=== PATIENT | male | born 1945 | race Caucasian/White ===

== ENCOUNTER 2021-04-25 07:59 | Outpatient (RCR) | payer MEDICARE, OTHER, SELFPAY | END 2021-06-01 10:44 | disposition home or self-care (01) | LOC: HO.WCC 07:59 | PROVIDERS: PCP Family Medicine; Visit Provider Physician Assistant | DX: R73.03 Prediabetes (principal); L97.819 Non-pressure chronic ulcer of other part of right lower leg with unspecified severity; I87.311 Chronic venous hypertension (idiopathic) with ulcer of right lower extremity; I10 Essential (primary) hypertension; I73.9 Peripheral vascular disease, unspecified; L30.9 Dermatitis, unspecified; Z87.891 Personal history of nicotine dependence | CPT/HCPCS: 11042; 97597; 99204; 99212 ==

== ENCOUNTER 2025-03-22 15:35 | Outpatient (REF) | payer MEDICARE, OTHER, SELFPAY ==
--- NOTE | ~2025-03-22 | XR_ITS ---
EXAMINATION: XR FOOT, LEFT CLINICAL INFORMATION: ULCER WITH VISABLE BONE COMPARISON: None available. TECHNIQUE: AP, lateral, and oblique views of the left foot. FINDINGS: The DIP joint of the second toe and IP joint of the great toe are flexed. Evaluation of the distal phalanx of the first and second digits are limited because of this projection. The cortex of the distal phalanx third toe is somewhat indistinct. The cortex of the distal phalanx of the second digit is not well-demonstrated. The cortex of the head of the middle phalanx is slightly irregular. There are no other bony abnormalities. Vascular thousand lesions are present in the foot. XR/XR foot LT 2V IMPRESSION: The distal phalanx of the first and second are not well demonstrated due to flexion during imaging. The cortex of the distal phalanx of the great toe is indistinct. If there is ulceration in this region, osteomyelitis in the differential. The distal phalanx of the second digit is poorly demonstrated due to projection, osteomyelitis is not ruled in or ruled out. The cortex of the head of the middle phalanx second digit is indistinct, osteomyelitis is in the differential. Electronically signed by: Shane Myles MD 03/22/2025 05:03 PM EDT
--- OUTSIDE RECORDS SUMMARY | 2025-03-22 17:28 | XMS_ITS | Continuity of Care Document ---
Author Organization [facility] Address [address] 2[address] [place] [address]- Care Team Providers Care Global Compensation Director Name Role Phone Martina Reyes MD Primary Care Physician Encounter [facility] [place] Date(s): 03/10/25 - 03/17/25 [facility] [place] [address] [place] [address]- Attending Physician: Mathew Sims MD Admitting Physician: Mathew Sims MD Referring Physician: Martina Reyes MD Encounter Type: Office Visit Allergies, Adverse Reactions, Alerts Substance Criticality Severity Reaction Reaction Severity Status cephalexin bad generalized rash Active Immunizations Given and Recorded Vaccine Date Status Refusal Reason influenza virus vaccine, inactivated 07/11/22 Chris rded influenza virus vaccine, inactivated 06/30/21 Chris rded influenza virus vaccine, inactivated 07/07/20 Chris rded influenza virus vaccine, inactivated 08/27/19 Chris rded influenza virus vaccine, inactivated 07/09/18 Chris rded influenza virus vaccine, inactivated 08/16/17 Chris rded [id number] bivalent booster vax 07/04/22 Recorded SARS-CoV-2 (COVID-19) mRNA-1273 vaccine 01/12/22 R ecorded SARS-CoV-2 (COVID-19) mRNA-1273 vaccine 09/06/21 R ecorded SARS-CoV-2 (COVID-19) mRNA BNT-162b2 vac 07/10/21 Recorded SARS-CoV-2 (COVID-19) mRNA BNT-162b2 vac 12/20/20 Recorded SARS-CoV-2 (COVID-19) mRNA BNT-162b2 vac 12/07/20 Recorded SARS-CoV-2 (COVID-19) mRNA BNT-162b2 vac 11/16/20 Recorded zoster vaccine, inactivated 09/05/18 Recorded zoster vaccine, inactivated 03/18/18 Recorded pneumococcal 23-valent vaccine 08/26/18 Recorded Medications [facility], See Instructions, # 5 each, Refills 5, Tot. Refills 5, Maintenance, Use left great toe wound as directed, 08/22/23 3:01:00 PM EST, Supply Start Date: 08/22/23 Status: Ordered Quantity: 5.0 Unit: each Repeat number: 6 atorvastatin 10 mg oral tablet 1 tablet = 10 mg, By Mouth, Daily, # 30 tablet, 0 Refills, Maintenance, 10/24/22 6:44:00 PM EST, Partial fill upon patient request if the prescription is for a schedule II opioid drug. Start Date: 10/24/22 Status: Ordered Quantity: 30.0 Unit: tablet Repeat number: 1 betamethasone topical dipropionate 0.05% cream 1 application, Topically, Daily, apply left lateral ankle 1-2 times daily, # 15 Gm, 0 Refills, Maintenance, 11/25/23 12:22:00 PM EST, Cream, [facility]/pharmacy #[id number], Partial fill upon patient request if the prescription is for a schedule II opioid drug., 1 application Topically Daily,Instr:apply left lateral ankle 1-2 times daily, 188, cm, 11/25/23 10:29:00 EST, Height, 95.5, kg, 04/16/23 9:22:00 EDT, Dry Weight Start Date: 11/25/23 Status: Ordered Quantity: 15.0 Unit: g Repeat number: 1 DilTIAZem (Eqv-Tiazac) 240 mg/24 hours oral capsule, extended release 1 capsule = 240 mg, By Mouth, Daily, 0 Refills, Maintenance, 03/25/23 11:25:00 AM EDT, Partial fill upon patient request if the prescription is for a schedule II opioid drug. Start Date: 03/25/23 Status: Ordered Repeat number: 1 Eliquis 5 mg oral tablet 1 tablet = 5 mg, By Mouth, 2 times a day, # 60 tablet, 5 Refills, Maintenance, 03/25/23 11:25:00 AM EDT, Tablet, Partial fill upon patient request if the prescription is for a schedule II opioid drug. Start Date: 03/25/23 Status: Ordered Quantity: 60.0 Unit: tablet Repeat number: 1 heel off loading shoe heel off loading shoe, See Instructions, # 2 each, Refills 0, Tot. 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 Refills 0, Maintenance, heel offloading shoe, 05/09/23 11:54:00 AM EDT, Supply Start Date: 05/09/23 Status: Ordered Quantity: 2.0 Unit: each Repeat number: 1 left heel offload shoe left heel offload shoe, See Instructions, # 1 each, Refills 0, Tot. Refills 0, Maintenance, Please fit and measure for a heel offloading shoe DX left heel ulcer, 06/13/23 2:52:00 PM EDT, Supply Start Date: 06/13/23 Status: Ordered Quantity: 1.0 Unit: each Repeat number: 1 Multivitamin Daily, 0 Refills, Maintenance, 04/16/23 9:19:00 AM EDT, Partial fill upon patient request if the prescription is for a schedule II opioid drug. Start Date: 04/16/23 Status: Ordered Repeat number: 1 nortriptyline 50 mg oral capsule 50 mg, 1, capsule, By Mouth, Daily at bedtime, Refills 0, Maintenance, 10/24/22 6:45:00 PM EST, Partial fill upon patient request if the prescription is for a schedule II opioid drug. Start Date: 10/24/22 Status: Ordered Repeat number: 1 Please fit patient for shoe insert to accommodate a prior left heel ulcer Please fit patient for shoe insert to accommodate a prior left heel ulcer, See Instructions, # 1 each, Refills 0, Tot. Refills 0, Maintenance, Please fit patient for a left foot shoe insert to accommodate a prior left heel ulcer in order to keep pressure OFF the heel area, 11/25/23 10:57:00 AM EST, Supply Start Date: 11/25/23 Status: Ordered Quantity: 1.0 Unit: each Repeat number: 1 SN SERVICE FOR LEFT HEEL WOUND 1X/WEEK SN SERVICE FOR LEFT HEEL WOUND 1X/WEEK, See Instructions, # 1 each, Refills 0, Tot. Refills 0, Maintenance, Aquacel AG dressings and Mepilex, 12/16/23 2:22:00 PM EDT, Supply, 188, cm, 12/16/23 13:16:00 EDT, Height, 95.5, kg, 04/16/23 9:22:00 EDT, Dry Weight Start Date: 12/16/23 Status: Ordered Quantity: 1.0 Unit: each Repeat number: 1 Vitamin D3 50 mcg (2000 intl units) oral tablet, chewable 1 tablet = 50 mcg, By Mouth, Daily, 0 Refills, Maintenance, 03/25/23 11:26:00 AM EDT, Partial fill upon patient request if the prescription is for a schedule II opioid drug. Start Date: 03/25/23 Status: Ordered Repeat number: 1 Problem List Condition Confirmation Course Effective Dates Status Health St atus Informant Diabetes mellitus Confirmed Active Wound of left heel Confirmed Active HTN (hypertension) Confirmed Active Obese class I Confirmed Active Pulmonary embolism Confirmed Active Renal mass Confirmed Active Social History Social History Type Response Tobacco Other: quit 52 years ago, smoked for 5-6 years, about 1 ppd. Sex Sex Representation Male (finding) Note * Flor Escudero: PERFORM Event Display: Patient Education/Instruction Authored Date: [id number] Ambulatory Adult Visit Summary [facility] [address] [address] Name: LALI ANDRADE : 1945?? Visit: 03/10/2025 11:00?? Ambulatory Visit Instructions ?? Your Care Team Primary Care Provider Martina Reyes MD? This Visit Provider Mathew Sims MD Vitals Signs Pulse Rate:??95 bpm??High Height: 188 cm Systolic Blood Pressure:??173 mm Hg??High Weight: 112.1 kg Diastolic Blood Pressure: 77 mm Hg Body Mass Index:??31.72 kg/m2??Critical Oxygen Saturation: 100 % Body surface area: 2.42 What to do next Scheduled Follow-Up Appointments Saturday 10:20 AM EDT ?? With: Wale Medrano MD Where: [facility] [address] [place] [id number]- Status: Pending Follow-Up Appointments Follow up Appointment - Ordered?-- F/U 6 months with KAUSHIK, 03/10/25 11:19:00 EDT Medications The list below reflects the information in our records and provided by you today along with any changes made during this visit. Please continue your medications until treatment is completed or stopped by your provider. If this is different from the information you have or there are other questions,please contact the prescribing provider. What How Much When Why Instructions Unchanged apixaban (Eliquis 5 mg oral tablet) 1 tab(s) Oral Twice a day Unchanged Atorvastatin (atorvastatin 10 mg oral tablet) 1 tab(s) Oral Daily Unchanged Betamethasone Topical (betamethasone topical dipropionate 0.05% cream) 1 nuha Topically Daily apply left lateral ankle 1-2 times daily ?? Unchanged Cholecalciferol (Vitamin D3 50 mcg (2000 intl units) oral tablet, chewable) 1 tab(s) Oral Daily Unchanged Diltiazem (DilTIAZem (Eqv-Tiazac) 240 mg/ 24 hours oral capsule, extended release) 1 capsule Oral Daily Unchanged Durable Medical Equipment (heel off loading shoe) See instructions Heel ulcer heel off loading shoe ?? Unchanged Durable Medical Equipment (heel off loading show) See instructions heel off loading shoe ?? Unchanged Durable Medical Equipment (left heel offload shoe) See instructions Please fit and measure for a heel offloading shoe DX left heel ulcer ?? Unchanged Durable Medical Equipment (Please fit patient for shoe insert to accommodate a prior leftheel ulcer) See instructions Please fit patient for a left foot shoe insert to accommodate a prior left heel ulcer in order to keep pressure OFF the heel area ?? Unchanged Miscellaneous Rx (aquacel Ag) See instructions Use left great toe wound as directed ?? Unchanged Miscellaneous Rx (SN SERVICE FOR LEFT HEEL WOUND 1X/ WEEK) See instructions Aquacel AG dressings and Mepilex ?? Unchanged Multivitamin Daily Unchanged Nortriptyline (nortriptyline 50 mg oral capsule) 1 capsule Oral Daily at Bedtime Medications and Immunizations Administered Medications Given During Visit No medications given during this visit.?? Allergies (NKA means No Known Allergies) cephalexin??(bad generalized rash) Common Emergency Awareness Tips IS IT A STROKE? Act FAST and Check for these signs: FACE Does the face look uneven? ARM Does one arm drift down? SPEECH Does their speech sound strange? TIME Call at any sign of stroke ?? Heart Attack Signs Chest discomfort: Most heart attacks involve discomfort in the center of the chest and lasts more than a few minutes, or goes away and comes back. It can feel like uncomfortable pressure, squeezing, fullness or pain. Discomfort in upper body: Symptoms can include pain or discomfort in one or both arms, back, neck, jaw or stomach. Shortness of breath: With or without discomfort. Other signs: Breaking out in a cold sweat, nausea, or lightheaded. Remember, MINUTES DO MATTER. If you experience any of these heart attack warning signs, call to get immediate medical attention! ?? Smoking can increase your chances of developing chronic health problems and can cause harmful effects to other family members in your house. If you smoke, you are strongly encouraged to quit. Please call [facility] [facility] at [phone] or [phone] ([phone]) or log in to [email or web address] for referrals to smoking cessation programs. ?? The National Suicide Prevention Hotline is available 29/04 if you or someone you know needs to find a reason to keep living. By calling 6-418-988-[employer] (8189) you'll be connected to a skilled, trained counselor at a crisis center in your area. [facility] Portal You can view and manage your care through the patient portal or by using a health care nuha of your choosing. [employer] is a website that allows you to securely view your medical information including your hospital discharge summary, office visit summaries, medications and follow-up visits. You can also request appointments, renew medications, and request access to your medical information using a health care nuha of your choosing, or just ask a question. You can enroll at [email or web address] or register during your next office visit. [facility], in keeping with [facility] guidance, no longer requires face masks for staff, patientsor visitors in most situations. Similiar to time spent indoors at other locations, there is the chance that you were exposed to repiratory viruses during your time with us (such as flu or COVID-19). If you develop symptoms concerning for a viral respiratory infection, please seek testing (and treatment if indicated) from your medical provider or home test kit. ?? Disclaimer: The information provided is of a general nature and is intended to be used in conjunction with the recommendations and advice of your health care practitioner. Every effort has been made to ensure that the information provided is accurate and complete at the time it is provided to you however, as your needs change, or, as new information becomes available, different or additional instructions may be required. ?? If you have questions, please consult with your primary care provider or pharmacist, as appropriate. This information is not intended to serve as substitution for assessment and evaluation by a qualified health care provider. If you do not have a primary care provider, you may find a [facility] provider by calling [facility] at [phone]. Patient Care team information Care Team Personnel Name: Martina Reyes MD Position: Reference Physician Member Role: PCP Address: [address] [place] [id number] Telecom: Care Team Related Persons Name: RENNY ANDRADE Insurance Providers Guarantor name: LALI RAYMOND Health Plan Information #: 1 Payer: MEDICARE B Payer Identifier: Member Number: [id number] Group Number: Subscriber Identifier: [id number] Relationship to Subscriber: self Coverage Type: NA Coverage Verification Date: Telecom: Address: Health Plan Information #: 2 Payer: S[employer]OVAL [employer] Payer Identifier: Member Number: [id number] Group Number: Subscriber Identifier: [id number] Relationship to Subscriber: self Coverage Type: Medicare Other Coverage Verification Date: Telecom: Address:
== END 2025-03-22 15:36 | disposition home or self-care (01) ==
LOC: HO.XRAY 15:35
PROVIDERS: PCP Family Medicine; Visit Provider Surgery Surgical Oncology
DX: L97.529 Non-pressure chronic ulcer of other part of left foot with unspecified severity (principal)
CPT/HCPCS: 73620

== ENCOUNTER → 2025-03-22 15:58 | Outpatient (BNV) | payer MEDICARE, OTHER, SELFPAY | PROVIDERS: PCP Family Medicine; Visit Provider Radiology Diagnostic Radiology | DX: L98.494 Non-pressure chronic ulcer of skin of other sites with necrosis of bone (principal) | CPT/HCPCS: 73620 ==